=== PATIENT | female | born 1970 | race Caucasian/White ===

== ENCOUNTER 2020-06-04 19:11 | Emergency (ER) | payer MEDICAID ==
[~2020-06-04] VITALS: Ht 160 cm; Wt 79.4 kg
[2020-06-04 19:15] VITALS: BP 129/88
--- NOTE | 2020-06-04 19:18 | NUR ---
TO LOBBY A/W BED AMBULATORY
--- NOTE | 2020-06-04 20:30 | NUR ---
SEEN AND EXAMINED BY NEVIN WITH ORDERS AND CARRIED OUT
--- NOTE | 2020-06-04 20:40 | NUR ---
SENT FOR XRAY WITH THE COVERED BUTTON MAKER
[2020-06-04] MEDS ORDERED: LIDOCAINE/EPI 1% 1:100000 20 ML VIAL INJ ONE ×2 (23:12→23:15)
--- NOTE | 2020-06-05 00:30 | NUR ---
ALL RESULTS BACK AND NOTED BY ERMD AND FOR D/C
--- NOTE | 2020-06-05 00:50 | NUR ---
Patient has a cm laceration to LIP. Dr. GOODMAN applied sutures using sterile technique. Edges well approximated. Site cleansed with STERILE WATER. No bleeding noted. Pt tolerated well.
[2020-06-05 01:00] VITALS: BP 129/88
--- NOTE | 2020-06-05 01:00 | NUR ---
Patient discharged with v/s stable. Written and verbal after care instructions given and explained. Patient verbalized understanding. Ambulatory with steady gait. All questions addressed prior to discharge. Advised to follow up with PMD.
== END 2020-06-05 01:00 | disposition home or self-care (01) ==
LOC: MED 19:11
DX: S01.511A Laceration without foreign body of lip, initial encounter (principal); M79.641 Pain in right hand; R07.9 Chest pain, unspecified; V89.2XXA Person injured in unspecified motor-vehicle accident, traffic, initial encounter; Y93.89 Activity, other specified; Y92.89 Other specified places as the place of occurrence of the external cause; Y99.8 Other external cause status
CPT/HCPCS: 40650; 70486; 71046; 73130; 90471; 90715; 99284; J2001

== ENCOUNTER 2020-08-12 21:37 | Emergency (ER) | payer MEDICAID ==
[~2020-08-12] VITALS: Ht 162.6 cm; Wt 74.4 kg
[2020-08-12 21:39] VITALS: BP 137/81
--- NOTE | 2020-08-12 21:47 | NUR ---
PT FELIX AMBULATED TO ED [facility].
[2020-08-12 22:48] VITALS: BP 137/81
== END 2020-08-12 22:48 | disposition home or self-care (01) ==
LOC: MED 21:37
DX: S01.511D Laceration without foreign body of lip, subsequent encounter (principal); Z48.00 Encounter for change or removal of nonsurgical wound dressing; X58.XXXD Exposure to other specified factors, subsequent encounter
CPT/HCPCS: 99281